=== PATIENT | male | born 1935 | race Caucasian/White ===

== ENCOUNTER 2019-01-21 12:14 | Outpatient (CLI) | payer OTHER ==
[~2019-01-21 12:14] MED LIST: AMLO1CAP9 PO; ATOR-2 PO; CHOL100012 PO; OMEP-110 PO; PRAS25CA PO; TAMS-11 PO
[2019-01-21] MEDS ORDERED: LIDOCAINE 2%, 6 ML JEL.PF.APP MM ONE (12:58)
== END 2019-01-21 23:59 | disposition home or self-care (01) ==
LOC: RAD 12:14
PROVIDERS: ATTEND Urology
DX: C64.9 Malignant neoplasm of unspecified kidney, except renal pelvis (principal)
CPT/HCPCS: 51600; 74430; Q9958